=== PATIENT | male | born 1980 ===

== ENCOUNTER 2021-11-03 16:39 | Outpatient (REF) | payer BC, SELFPAY ==
[2021-11-03 15:35] LABS: ALT 53 U/L (16-63); AST 26 U/L (15-37); Albumin 3.8 g/dL (3.4-5.0); Alkaline Phosphatase 57 U/L (46-116); Anion Gap 9.6 mmol/L (3-11); BUN 11 mg/dL (7-18); Bilirubin, Total 0.4 mg/dL (0.2-1.0); CO2 28.4 mmol/L (21.0-32.0); CREATININE 0.7 mg/dL (0.70-1.30); Calculated LDL 79 mg/dL (<100); Chloride 105 mmol/L (98-107); Cholesterol 161 mg/dL (<200); Glucose 104 mg/dL (74-106); HDL Cholesterol 65 mg/dL (40-60); Iron 86 ug/dL (65-175); Potassium 4.1 mmol/L (3.5-5.1); Sodium 143 mmol/L (136-145); Total Iron Binding Capacity 250 ug/dL (250-450); Total Protein 7.1 g/dL (6.4-8.2); Transferrin Sat 34 % (20-55); Triglyceride 88 mg/dL (<150)
[2021-11-03 15:47] LABS: Ferritin 77 ng/mL (26-388)
== END 2021-11-03 16:40 | disposition home or self-care (01) ==
LOC: NCHCN 16:39
PROVIDERS: PCP Nurse Practitioner Family; Visit Provider Internal Medicine
DX: Z00.00 Encounter for general adult medical examination without abnormal findings (principal); E78.2 Mixed hyperlipidemia; R79.89 Other specified abnormal findings of blood chemistry
CPT/HCPCS: 80053; 80061; 82728; 83540; 83550